=== PATIENT | female | born 1980 | race Two or more races ===

== ENCOUNTER 2023-08-06 16:58 | Emergency (ER) | payer OTHER ==
[~2023-08-06] VITALS: Ht 167.6 cm; Wt 49.9 kg
[2023-08-06] MEDS ORDERED: SERTRALINE HCL25 MG PO (17:12)
[2023-08-06] MEDS ORDERED: ATIVAN1 M1 PO (17:13)
[2023-08-06 19:00] LABS: HEMATOCRIT 33.4 % (36.0-45.00); HEMOGLOBIN 11.4 g/dL (12.0-15.00); MEAN CELL VOLUME 89.3 fL (80.00-100.00); MEAN CORPUSCULAR HEMOGLOBIN 30.5 pg (27.00-32.0); MEAN CORPUSCULAR HGB CONC 34.1 g/dl (32.0-36.0); PLATELET COUNT 214 K/uL (150-450); RED BLOOD COUNT 3.73 M/uL (4.00-6.00); RED CELL DISTRIBUTION WIDTH 14.1 % (11.5-14.5)
[2023-08-06 19:01] LABS: URINE APPEARANCE Cloudy; URINE BILIRRUBIN Negative (NEGATIVE); URINE BLOOD Negative; URINE COLOR Yellow; URINE GLUCOSE Negative (NEGATIVE); URINE LEUKOCYTE Negative; URINE NITRATE Negative; URINE PROTEIN Negative (NEGATIVE); URINE UROBILINOGEN 0.2 E.U./dl
[2023-08-06 19:04] LABS: URINE BACTERIA 1054.5 uL (0.0-1933); URINE EPITHELIAL CELLS 48.2 uL (0.0-38.8); URINE RBC 180.9 uL (0.0-20.8); URINE WBC 15.1 uL (0.0-23.2)
[2023-08-06 19:30] LABS: CALCIUM 8.3 mg/dL (8.5-10.1); CREATININE SERUM 0.75 mg/dL (0.55-1.02); GFR 85.58; POTASSIUM 3.63 mEq/L (3.5-5.1)
== END 2023-08-06 21:49 | disposition home or self-care (01) ==
LOC: ER 16:58
PROVIDERS: Emergency Medicine
DX: R30.0 Dysuria (principal); N89.8 Other specified noninflammatory disorders of vagina

== ENCOUNTER 2024-02-14 08:19 | Outpatient (CLI) | payer OTHER ==
[~2024-02-14 08:19] MED LIST: ATIVAN1 M1 PO; SERTRALINE HCL25 MG PO
== END 2024-02-14 08:42 | disposition home or self-care (01) ==
LOC: MAMO-SONO 08:19
PROVIDERS: ATTEND Family Medicine
DX: N60.11 Diffuse cystic mastopathy of right breast (principal); N60.12 Diffuse cystic mastopathy of left breast; Z12.31 Encounter for screening mammogram for malignant neoplasm of breast; K45.8 Other specified abdominal hernia without obstruction or gangrene; R10.2 Pelvic and perineal pain; R10.9 Unspecified abdominal pain

== ENCOUNTER 2025-01-30 09:36 | Outpatient (CLI) | payer OTHER | END 2025-01-30 09:38 | disposition home or self-care (01) | LOC: TOM 09:36 | PROVIDERS: ATTEND Family Medicine | DX: R10.2 Pelvic and perineal pain (principal) ==